=== PATIENT | female | born 1980 | race Caucasian/White ===

== ENCOUNTER 2017-08-27 15:01 | Emergency (ER) | payer BC, OTHER ==
[~2017-08-27] VITALS: Ht 157.5 cm; Wt 99.8 kg
--- NOTE | ~2017-08-27 | EKG ---
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
--- NOTE | ~2017-08-27 | EKG ---
[address] [address] [facility] [place] [address] ELECTROCARDIOGRAM REPORT Name: SHEBAELIZABETH GAVIRIA [facility] [id number] Admission: 08/27/17 Attend Phys: Discharge: Date of : 78 Report #: [id number] THIS REPORT FOR: //name// [facility] ED Test Date: 2017-08-27 Test Time: 15:02:02 Pat Name: ELIZABETH SCRUGGS Department: Room: Gender: F Materials Associate: [facility] : 1980 Requested By: Keke Rosas Order Number: [id number] MD: Jayson Stewart Measurements Intervals [place] Rate: 77 P: 18 [place]: 161 QRS: -1 QRSD: 92 T: 16 QT: 349 QTc: 395 Interpretive Statements Sinus rhythm Normal tracing No previous ECG available for comparison Electronically Signed On 08-27-2017 17:10:01 CDT by Jayson Stewart [email or web address] <ELECTRONICALLY SIGNED> By: Jayson Stewart MD, [facility] 08/27/17 1710 1502 1502 Jayson Stewart MD, FACC /EPI
[2017-08-27 15:27] LABS: ABSOLUTE NEUTROPHILS 5.5 thou/uL (1.4-8.2); BASOPHILS 0.5 % (0.0-2.0); EOSINOPHILS 1.1 % (0.0-3.0); HEMATOCRIT 37.5 % (37.0-47.0); HEMOGLOBIN 12.5 gm/dL (12.0-15.0); LYMPHOCYTES 22.2 % (24.0-44.0); MCH 24.8 pg (26.0-34.0); MCHC 33.2 g/dL (28.0-37.0); MCV 74.7 fL (80.0-100.0); MONOCYTES 3.9 % (1.0-8.0); PLATELET COUNT 277 thou/uL (150-400); POLYS 72.3 % (36.0-66.0); RBC 5.02 mil/uL (4.20-5.00); RDW 18.6 % (10.5-14.5); WBC 7.6 thou/uL (4.0-11.0)
[2017-08-27 15:35] LABS: ANION GAP 9 mmol/L (7-16); BUN 11 mg/dL (7-18); CALCIUM 9.7 mg/dL (8.5-10.1); CHLORIDE 103 mmol/L (98-107); CO2 29 mmol/L (21-32); CREATININE 0.7 mg/dL (0.6-1.0); GLUCOSE 92 mg/dL (74-106); POTASSIUM 3.4 mmol/L (3.5-5.1); SODIUM 141 mmol/L (136-145)
[2017-08-27 15:43] LABS: LIPASE 77 U/L (73-393); SGOT 18 U/L (15-37); SGPT 31 U/L (30-65); TOTAL BILIRUBIN 0.4 mg/dL (<0.1-1.0); TOTAL PROTEIN 8.2 g/dL (6.4-8.2); TROPONIN-I < 0.04 ng/mL (<0.06)
[2017-08-27] MEDS ORDERED: NAPROSYN500 MG PO (18:18)
[2017-08-27 18:46] VITALS: BP 147/89
== END 2017-08-27 18:47 | disposition home or self-care (01) ==
LOC: ER 15:01
PROVIDERS: Nurse Practitioner Family
DX: R07.89 Other chest pain (principal); I10 Essential (primary) hypertension; E78.00 Pure hypercholesterolemia, unspecified; F41.9 Anxiety disorder, unspecified; Z90.49 Acquired absence of other specified parts of digestive tract; Z98.890 Other specified postprocedural states; Z90.89 Acquired absence of other organs; Z91.040 Latex allergy status